=== PATIENT | male | born 1995 | race Hispanic/Latino ===

== ENCOUNTER 2025-06-20 17:11 | Emergency (ER) | payer SELFPAY ==
[2025-06-20 17:13] VITALS: BP 149/80
--- NOTE | 2025-06-20 18:12 | ED.GENMED ---
History of Present Illness
General
Chief Complaint: Rectal Bleeding
Time Seen by Provider: 06/20/25 17:47
History of Present Illness
History of Present Illness:
Patient presents to the emergency department complaining of diffuse abdominal pain and rectal bleeding. Symptoms have been ongoing for months however over the past couple of weeks they have been worsening. He notes that there is blood in the
stool. Denies fevers. Denies vomiting.
Phy Exam
Physical Exam
Physical Exam:
GENERAL APPEARANCE: NAD, well developed/ well nourished
EYES lids/conjunctiva normal
EARS/NOSE/THROAT Mucous membranes moist, uvula midline without oral pharyngeal erythema, exudate or swelling
HEAD/NECK normocephalic atraumatic, neck is supple.
RESPIRATORY respiratory effort normal, speaks in full sentences, no accessory muscle use. Lungs clear to auscultation without rhonchi, wheezes, rales
CARDIAC Regular rate and rhythm, no edema.
ABDOMINAL diffuse abdominal tenderness. Soft without guarding. Rectal exam without any bleeding or hemorrhoid
MUSCLES/EXTREMITIES No abnormal range of motion, no swelling.
SKIN Warm, pink and dry. No rashes
NEUROLOGICAL Speech is clear and appropriate. Normal level of consciousness. 5/5 strength in all extremities.
PSYCH Normal mood and affect. Judgement/competence is appropriate
Course
Orders/Labs/Results
Orders:
Orders
06/20/25 18:05
O&P Giardia/Cryptosporidium AG [Giardia/Cryptosporidium Ag] Urgent
SULEIMAN Source: Feces/Stool
Specimen Description:
Stool Culture Urgent
SULEIMAN Source: Feces/Stool
Specimen Description:
06/20/25 18:07
CT Abd/Pel (IV only)-DH only Urgent
Comment:
Reason For Exam: abdominal pain , rectal bleeding
06/20/25 18:47
Complete Blood Count/With Diff Urgent
Comprehensive Metabolic Panel Urgent
PTT Urgent
Abnormal Lab Results
06/20/25
18:47
RBC 4.55 L 10^6/uL
(4.70-6.10)
Hct 38.0 L %
(39.0-52.0)
Monocytes % 10.1 H %
(1.7-9.3)
Creatinine 0.6 L mg/dL
(0.7-1.3)
Glucose 117 H mg/dl
(70-99)
ALT 82 H U/L
(0-50)
06/20/25 18:47
06/20/25 18:47
Vital Signs
Initial and Last Documented VS:
Initial Vital Signs
Temp Pulse Resp BP Pulse Ox
98.6 F 54 16 149/80 100
06/20/25 17:13 06/20/25 17:13 06/20/25 17:13 06/20/25 17:13 06/20/25 17:13
Last Documented Vital Signs
Temp Pulse Resp BP Pulse Ox
98.6 F 54 16 149/80 100
06/20/25 17:13 06/20/25 17:13 06/20/25 17:13 06/20/25 17:13 06/20/25 18:13
*Pulse Oximetry
SaO2: 100
Oxygen Mode of Delivery: Room air
Patient hypoxic: no
*Critical Care Note
Total Time (30-74mins, 75-104mins- exclusive of procedures): Not Applicable
ED Attending Note
ED Attending Note
ED Attending Note:
Patient presents to the emergency department with mom for abdominal pain and rectal bleeding. He is well-appearing. Non peritoneal exam and no evidence of ongoing significant blood loss. Labs and CT without significant abnormalities. Discussed
close outpatient follow up with a automatic transmission mechanic with return precautions for worsening bleeding or pain.
-
Portions of this chart may have been created with voice recognition software.� Occasional wrong word or��sound alike� substitutions may have occurred due to the inherent limitations of voice recognition software.
Discharge Plan
Departure
Patient Disposition: Home (Routine Discharge)
Date of Disposition: 06/20/25
Time of Disposition: 20:19
Patient with high blood pressure during this ER visit?: Yes
Discharge Problem:
Abdominal pain, Rectal bleed
Instructions: Bloody Stools, Adult (DC), Abdominal Pain
Referrals:
Do,Portia Baird MD [Active, Gastroenterology]
UNKNOWN - PT DOES,NOT KNOW [Family Provider]
Activity Restrictions/Additional Instructions:
Please call the GI doctor for close outpatient forllow up/colonoscopy. Return to the ER with new or worsening symptoms
Llame al gastroenter�logo para un seguimiento ambulatorio minucioso/colonoscopia. Regrese a urgencias si presenta s�ntomas nuevos o empeora.
Interventions
Interventions:
*Risk Screen - Suicide Last Done: 06/20/25 17:13
*General Assessment Last Done: 06/20/25 18:53
*Neglect/Abuse Screening Last Done: 06/20/25 17:13
*ED- Fall Risk Assessment Last Done: 06/20/25 18:53
EI-Krcoau-Hxrpwybalc Assessment Last Done: 06/20/25 18:53
ED- Cardiac Assessment Last Done: 06/20/25 18:53
ED- Pulmonary Assessment Last Done: 06/20/25 18:53
Discharge Date and Time
Print Language: MALAGASY
[2025-06-20 19:10] LABS: Hematocrit 38.0 % (39.0-52.0); Hemoglobin 13.4 g/dL (13.0-18.0); Mean Corp Hgb Conc. 35.3 g/dL (33.0-37.0); Mean Corpuscular Volume 83.5 fL (80.0-94.0); Nucleated Red Blood Cells % 0 % (-); Platelet Count 240 10^3/uL (130-400); Red Cell Dist. Width 12.1 % (11.5-14.5)
[2025-06-20 19:11] LABS: APTT 30.6 Sec (23.4-35.0)
[2025-06-20 19:32] LABS: ALT (SGPT) 82 U/L (0-50); AST (SGOT) 52 U/L (17-59); Albumin 4.4 g/dl (3.5-5.0); Alkaline Phosphatase 111 U/L (38-126); Blood Urea Nitrogen 10 mg/dl (9-20); Calcium 9.0 mg/dl (8.4-10.2); Carbon Dioxide 25 mmol/L (22-30); Glucose 117 mg/dl (70-99); Total Protein 7.3 g/dl (6.3-8.2); eGFR > 60.00
[2025-06-20 19:40] LABS: Chloride 104 mmol/L (98-107); Potassium 3.8 mmol/L (3.5-5.1); Sodium 137 mmol/L (135-145)
== END 2025-06-20 21:01 | disposition home or self-care (01) ==
LOC: EMR 17:11
PROVIDERS: EMERGENCY PHYSICIAN Emergency Medicine
DX: R10.9 Unspecified abdominal pain (principal); K62.5 Hemorrhage of anus and rectum; R03.0 Elevated blood-pressure reading, without diagnosis of hypertension
CPT/HCPCS: 99284; 74177; 80053; 85025; 85730; Q9967

== ENCOUNTER 2025-07-15 06:20 | Day surgery (SDC) | payer SELFPAY | END 2025-07-15 10:30 | disposition home or self-care (01) | LOC: GI 06:20 | PROVIDERS: ATTENDING PHYSICIAN Internal Medicine Gastroenterology | DX: R19.4 Change in bowel habit (principal); K62.5 Hemorrhage of anus and rectum; K64.8 Other hemorrhoids | CPT/HCPCS: 45378 ==